=== PATIENT | female | born 1935 | race Two or more races ===

== ENCOUNTER → 2016-05-22 | Outpatient (CLI) | payer MEDICARE, OTHER ==
[~2016-05-22] VITALS: Ht 152.4 cm; Wt 90.0 kg
[~2016-05-22] MED LIST: ATOR40TA28 PO; DICL4100G TP; GENTAMICIN OP; LIDOCAINE 5% TP; LOSA50TA37 PO; MELO-273 PO; OMEP20 PO; OXYC5CAP3 PO; PREG150C PO
[2016-05-22 14:08] VITALS: BP 142/64
== END | disposition home or self-care (01) ==
LOC: SRCNTR 12:39
PROVIDERS: ATTEND Podiatrist Foot & Ankle Surgery
DX: E11.9 Type 2 diabetes mellitus without complications (principal); L29.9 Pruritus, unspecified; L57.0 Actinic keratosis; M79.675 Pain in left toe(s); M79.674 Pain in right toe(s)
CPT/HCPCS: G0463

== ENCOUNTER → 2016-07-17 | Outpatient (CLI) | payer MEDICARE, OTHER ==
[~2016-07-17] VITALS: Ht 157.5 cm; Wt 88.0 kg
[2016-07-17 13:47] VITALS: BP 106/54
== END | disposition home or self-care (01) ==
LOC: SRCNTR 13:07
PROVIDERS: ATTEND Podiatrist Foot & Ankle Surgery
DX: E11.9 Type 2 diabetes mellitus without complications (principal); I73.9 Peripheral vascular disease, unspecified; L57.0 Actinic keratosis; L29.8 Other pruritus; M79.675 Pain in left toe(s); M79.674 Pain in right toe(s)
CPT/HCPCS: G0463

== ENCOUNTER → 2016-09-18 | Outpatient (CLI) | payer MEDICARE, OTHER ==
[~2016-09-18] VITALS: Ht 157.5 cm; Wt 86.0 kg
[2016-09-18 13:58] VITALS: BP 121/67
== END | disposition home or self-care (01) ==
LOC: SRCNTR 13:51
PROVIDERS: ATTEND Podiatrist Foot & Ankle Surgery
DX: E11.51 Type 2 diabetes mellitus with diabetic peripheral angiopathy without gangrene (principal); L57.0 Actinic keratosis; M21.612 Bunion of left foot; M25.611 Stiffness of right shoulder, not elsewhere classified; L29.9 Pruritus, unspecified
CPT/HCPCS: G0463

== ENCOUNTER → 2016-11-20 | Outpatient (CLI) | payer MEDICARE, OTHER ==
[~2016-11-20] VITALS: Ht 160 cm; Wt 87.0 kg
[2016-11-20 14:41] VITALS: BP 146/78
== END | disposition home or self-care (01) ==
LOC: SRCNTR 14:40
PROVIDERS: ATTEND Podiatrist Foot & Ankle Surgery
DX: E11.9 Type 2 diabetes mellitus without complications (principal); I73.9 Peripheral vascular disease, unspecified; L57.0 Actinic keratosis; M79.675 Pain in left toe(s); M79.674 Pain in right toe(s); L29.9 Pruritus, unspecified
CPT/HCPCS: G0463

== ENCOUNTER → 2017-01-15 | Outpatient (CLI) | payer MEDICARE, OTHER ==
[~2017-01-15] VITALS: Ht 152.4 cm; Wt 82.5 kg
[~2017-01-15] MED LIST changes: +MELO-107 PO; -MELO-273 PO; +OXYC5CAP19 PO; -OXYC5CAP3 PO
[2017-01-15 14:07] VITALS: BP 143/57
== END | disposition home or self-care (01) ==
LOC: SRCNTR 13:58
PROVIDERS: ATTEND Podiatrist Foot & Ankle Surgery
DX: E11.9 Type 2 diabetes mellitus without complications (principal); L57.0 Actinic keratosis; I73.9 Peripheral vascular disease, unspecified; M79.675 Pain in left toe(s); M79.674 Pain in right toe(s); Z88.0 Allergy status to penicillin
CPT/HCPCS: G0463

== ENCOUNTER → 2017-04-16 | Outpatient (CLI) | payer MEDICARE, OTHER ==
[~2017-04-16] VITALS: Ht 152.4 cm; Wt 81.0 kg
[2017-04-16 15:33] VITALS: BP 150/73
== END | disposition home or self-care (01) ==
LOC: SRCNTR 13:54
PROVIDERS: ATTEND Podiatrist Foot & Ankle Surgery
DX: Z88.0 Allergy status to penicillin (principal); L57.0 Actinic keratosis; Z88.5 Allergy status to narcotic agent
CPT/HCPCS: G0463